=== PATIENT | male | born 1960 | race Caucasian/White ===

== ENCOUNTER 2017-03-11 17:38 | Emergency (ER) | payer BC ==
[~2017-03-11] VITALS: Ht 180.3 cm; Wt 87.0 kg
[~2017-03-11 17:38] MED LIST: CLEO300C2 PO; SULF1TAB47 PO; Z.0.NO CURRENT MEDS
[2017-03-11 17:47] VITALS: BP 160/94; PULSE 111; RESP 20; TEMP 99; O2SAT 98
--- NOTE | 2017-03-11 18:01 | PD ---
HPI Chief Complaint: Skin Problem Time Seen by Provider: 17:55 Travel History International Travel<30 days: No Contact w/Intl Traveler<30days: No Traveled to known affect area: No History of Present Illness HPI 57-year-old male presents the emergency department with mildly tender swollen erythematous warm area over the left posterior elbow. Patient states about a week ago he had a small pimple to the area. He states it seemed to improve but then got worse the last 2 days. Patient denies any specific injury to the area. He denies fever, chills, or numbness or tingling. No history of MRSA in the past. He has full range of motion and strength. Pain is 2 out of 10 at most. He has no known drug allergies. PFSH Past Medical History Diminished Hearing: No Integumentary: Yes (MRSA INFECTIONS IN THE PAST) Social History Alcohol Use: No Tobacco Use: No Substance Use: No Allergies-Medications (Allergen,Severity, Reaction): Coded Allergies: No Known Allergies (Verified , 03/11/17) Reported Meds & Prescriptions Reported Meds & Active Scripts Active Keflex (Cephalexin) 500 Mg Cap 500 Mg PO Q8H Ibuprofen 800 Mg Tab 800 Mg PO Q8H PRN Bactrim DS (Sulfamethoxazole-Trimethoprim) 800-160 Mg Tab 1 Tab PO BID Review of Systems Except as stated in HPI: all other systems reviewed are Neg General / Constitutional: No: Fever Eyes: No: Visual changes HENT: No: Headaches Cardiovascular: No: Chest Pain or Discomfort Respiratory: No: Shortness of Breath Gastrointestinal: No: Abdominal Pain Genitourinary: No: Dysuria Musculoskeletal: No: Pain Skin: No Rash Neurologic: No: Weakness Psychiatric: No: Depression Endocrine: No: Polydipsia Hematologic/Lymphatic: No: Easy Bruising Physical Exam Narrative GENERAL: Patient is in no acute distress. SKIN: Warm and dry. Normal color. Normal turgor. Specifically over the right posterior elbow the patient has some mild erythema, induration, and warmth without obvious septic bursitis. HEAD: Atraumatic. Normocephalic. EYES: Pupils equal and round. No scleral icterus. No injection or drainage. ENT: No nasal bleeding or discharge. Mucous membranes pink and moist. Clear. Airway is patent. NECK: Trachea midline. Supple and nontender. CARDIOVASCULAR: Regular rate and rhythm. RESPIRATORY: No accessory muscle use. Clear to auscultation. Breath sounds equal bilaterally. MUSCULOSKELETAL: Extremities without clubbing, cyanosis, or edema. No obvious deformities. NEUROLOGICAL: Awake and alert. No obvious cranial nerve deficits. Motor grossly within normal limits. Five out of 5 muscle strength in the arms and legs. Normal speech. PSYCHIATRIC: Appropriate mood and affect; insight and judgment normal. Data Data Last Documented VS Vital Signs Date Time Temp Pulse Resp B/P Pulse Ox O2 Delivery O2 Flow Rate FiO2 03/11/17 17:47 99.0 111 20 160/94 98 MDM Medical Decision Making Medical Screen Exam Complete: Yes Emergency Medical Condition: Yes Differential Diagnosis Left olecranon bursitis. Cellulitis. MRSA. Narrative Course Patient is felt to have a olecranon bursitis with mild cellulitis. I do not feel it would be appropriate to drain this at this time based on my history and physical. Patient will be given Bactrim DS twice a day 10 days. Patient also given Keflex 500 mg 3 times a day 10 days. Patient is also given ibuprofen 800 mg 3 times daily with food #30. Patient is to try and limit his use of the left arm as much as possible. He should follow up if symptoms do not improve or worsen as discussed. Diagnosis Primary Impression: Olecranon bursitis of left elbow Additional Impression: Cellulitis Qualified Code: L03.114 - Cellulitis of left upper extremity Referrals: Primary Care Physician Patient Instructions: Cellulitis (DC), Elbow Bursitis (ED), General Instructions Additional Instructions: I do not feel it would be appropriate to drain this at this time based on my history and physical. Patient will be given Bactrim DS twice a day 10 days. Patient also given Keflex 500 mg 3 times a day 10 days. Patient is also given ibuprofen 800 mg 3 times daily with food #30. Patient is to try and limit his use of the left arm as much as possible. He should follow up if symptoms do not improve or worsen as discussed. Scripts Cephalexin (Keflex)500 Mg [id number] Mg PO Q8H #30 CAP Prov:Lili Cruz MD 03/11/17 Ibuprofen 800 Mg [id number] Mg PO Q8H PRN (Pain/Inflammation) #30 TAB Prov:Lili Cruz MD 03/11/17 Sulfamethoxazole-Trimethoprim (Bactrim DS)800-160 Mg Tab1 Tab PO BID #20 TAB Prov:Lili Cruz MD 03/11/17 Disposition: 01 DISCHARGE HOME Condition: Stable Luis Archuleta Mar 11, 2017 18:01
[2017-03-11] MEDS ORDERED: CEPH-460 PO (18:02)
[2017-03-11] MEDS ORDERED: IBUP800T23 PO (18:02)
[2017-03-11] MEDS ORDERED: BACT800T5 PO (18:02)
== END 2017-03-11 18:18 | disposition home or self-care (01) ==
LOC: PHEFT 17:38
DX: M70.22 Olecranon bursitis, left elbow (principal); L03.114 Cellulitis of left upper limb; Z86.14 Personal history of Methicillin resistant Staphylococcus aureus infection
CPT/HCPCS: 99284